=== PATIENT | female | born 1945 | race Caucasian/White ===

== ENCOUNTER 2020-05-29 10:59 | Inpatient (IN) | payer OTHER, MEDICARE ==
[2020-05-29 12:43] LABS: BASO % 0.5 % (0-2.0); EOS % 2.8 % (0-4.5); HEMATOCRIT 25.9 % (32.4-45.2); HEMOGLOBIN 8.7 GM/dL (10.7-15.3); LYMPH % 7.5 % (8-40); MCH 26.7 pg (25.7-33.7); MCHC 33.4 g/dl (32.0-36.0); MEAN CELL VOLUME 79.8 fl (80-96); MEAN PLT VOLUME 7.2 fl (7.5-11.1); MONO % 10.4 % (3.8-10.2); NEUT % 78.8 % (42.8-82.8); PLATELET COUNT 266 K/MM3 (134-434); RBC 3.25 M/mm3 (3.60-5.2); RDW 17.6 % (11.6-15.6); WHITE BLOOD COUNT 7.5 K/mm3 (4.0-10.0)
[2020-05-29 12:54] LABS: EPI CELLS 28 /uL (0-25.1); HYALINE CASTS 1 /uL (0-3.1); PH,URINE >= 9.0 (5.0-8.0); URINE APPEARANCE CLEAR; URINE BACTERIA 85 /uL (0-1359); URINE BILIRUBIN NEGATIVE (NEGATIVE); URINE COLOR YELLOW; URINE GLUCOSE (UA) TRACE (NEGATIVE); URINE KETONE NEGATIVE (NEGATIVE); URINE LEUK ESTERASE 1+ (NEGATIVE); URINE NITRITE NEGATIVE (NEGATIVE); URINE PROTEIN 4+ (NEGATIVE); URINE RBC 54 /uL (0-23.9); URINE WBC 74 /uL (0-25.8)
[2020-05-29 13:10] LABS: BLOOD UREA NITROGEN 61.9 mg/dL (7-18); CALCIUM 7.5 mg/dL (8.5-10.1)
[2020-05-29 13:11] LABS: ALBUMIN 1.9 g/dl (3.4-5.0)
[2020-05-29 13:14] LABS: CREATININE 4.7 mg/dL (0.55-1.3)
[2020-05-29 13:15] LABS: BILIRUBIN,TOTAL 0.7 mg/dL (0.2-1); TOT PROT 6.3 g/dl (6.4-8.2)
[2020-05-29] MEDS ORDERED: SODIUM CHLORIDE 250 ML IV PRN ×2 (13:59→18:16)
[2020-05-29] MEDS ORDERED: CEFTRIAXONE 1,000 MG in DEXTROSE 5%-WATER - 50 ML IVPB ONE (14:29)
[2020-05-29] MEDS ORDERED: CEFTRIAXONE 1 GM/50 ML BAG ONE (14:42)
[2020-05-29 14:54] LABS: INR 2.27 (0.83-1.09); PROTHROMBIN TIME (PATIENT) 26.8 SEC (9.7-13.0)
[2020-05-29] MEDS ORDERED: oxyCODONE HCL 5 MG TABLET PO PRN ×2 (16:07→18:16)
[2020-05-29] MEDS ORDERED: ONDANSETRON 4 MG/2 ML VIAL IVPUSH PRN ×2 (16:07→18:16)
[2020-05-29] MEDS ORDERED: PROMETHAZINE HCL 25 MG/1 ML VIAL IVPUSH PRN ×2 (16:07→18:16)
[2020-05-29] MEDS ORDERED: LIDOCAINE HCL 1%, 10 MG/ML (20ML VIAL) ONE (16:14)
[2020-05-29] MEDS ORDERED: MIDAZOLAM HCL 2 MG/2 ML SINGLE DOSE VIAL ONE (16:50)
[2020-05-29] MEDS ORDERED: PROPOFOL 20 ML ONE (17:13)
[2020-05-29] MEDS ORDERED: ceFAZolin SODIUM 1 GM VIAL ONE (17:21)
[2020-05-29] MEDS ORDERED: DEXAMETHASONE SOD PHOSPHATE 4 MG/1 ML VIAL ONE (17:21)
[2020-05-29] MEDS ORDERED: FERROUS SO4 325 MG TABLET (FP) PO SCH (22:00)
[2020-05-29] MEDS ORDERED: ROSUVASTATIN CA 10 MG TABLET (FP) PO SCH (22:00)
[2020-05-29] MEDS ORDERED: CARVEDILOL 25 MG TABLET (FP) PO SCH (22:00)
[2020-05-29] MEDS ORDERED: amLODIPine BESYLATE 5 MG TABLET (FP) PO SCH (22:00)
[2020-05-29] MEDS ORDERED: OXYBUTYNIN CHLORIDE 5 MG TABLET PO SCH (22:00)
[2020-05-29] MEDS ORDERED: CALCITRIOL 0.25 MCG CAPSULE (FP) PO SCH (22:00)
[2020-05-29 23:07] VITALS: BMI 20.7
[2020-05-29] MEDS ORDERED: PT OWN MED DRAWER 7, Y5N ONE (23:09)
[2020-05-29] MEDS: CARVEDILOL 25 MG TABLET (FP) PO SCH (23:15)
[2020-05-29] MEDS: FERROUS SO4 325 MG TABLET (FP) PO SCH (23:15)
[2020-05-29] MEDS: amLODIPine BESYLATE 5 MG TABLET (FP) PO SCH (23:15)
[2020-05-29] MEDS: ROSUVASTATIN CA 10 MG TABLET (FP) PO SCH (23:15)
[2020-05-30] MEDS: OXYBUTYNIN CHLORIDE 5 MG TABLET PO SCH ×2 (01:32→22:01)
[2020-05-30] MEDS: CALCITRIOL 0.25 MCG CAPSULE (FP) PO SCH ×2 (01:32→22:01)
[2020-05-30] MEDS: SODIUM BICARBONATE 650 MG TABLET PO SCH ×3 (05:08→22:00)
[2020-05-30] MEDS ORDERED: SODIUM BICARBONATE 650 MG TABLET PO SCH (06:00)
[2020-05-30] MEDS ORDERED: SEVELAMER CARBONATE 800 MG TAB (FP) PO SCH (08:00)
[2020-05-30] MEDS: SEVELAMER CARBONATE 800 MG TAB (FP) PO SCH ×3 (08:43→18:23)
[2020-05-30 08:57] LABS: BASO % 0.1 % (0-2.0); HEMATOCRIT 28.4 % (32.4-45.2); HEMOGLOBIN 9.8 GM/dL (10.7-15.3); LYMPH % 6.4 % (8-40); MCH 27.3 pg (25.7-33.7); MCHC 34.7 g/dl (32.0-36.0); MEAN CELL VOLUME 78.8 fl (80-96); MEAN PLT VOLUME 7.2 fl (7.5-11.1); MONO % 8.7 % (3.8-10.2); NEUT % 84.8 % (42.8-82.8); PLATELET COUNT 260 K/MM3 (134-434); RDW 17.8 % (11.6-15.6); WHITE BLOOD COUNT 7.3 K/mm3 (4.0-10.0)
[2020-05-30] MEDS ORDERED: PANTOPRAZOLE 40 MG TABLET PO SCH (10:00)
[2020-05-30] MEDS ORDERED: ISOSORBIDE MONONITRATE 60 MG TAB.SR.24H (FP) PO SCH (10:00)
[2020-05-30] MEDS ORDERED: LIOTHYRONINE SODIUM 25 MCG TABLET PO SCH (10:00)
[2020-05-30] MEDS ORDERED: METHADONE HCL 10 MG TABLET PO SCH (10:00)
[2020-05-30] MEDS ORDERED: FOLIC ACID 1 MG TABLET (FP) PO SCH (10:00)
[2020-05-30 10:20] LABS: ALBUMIN 1.8 g/dl (3.4-5.0); BILIRUBIN,TOTAL 0.4 mg/dL (0.2-1); BLOOD UREA NITROGEN 37.8 mg/dL (7-18); CALCIUM 8.5 mg/dL (8.5-10.1); CREATININE 3.3 mg/dL (0.55-1.3); MAGNESIUM 2.2 mg/dL (1.8-2.4); PHOSPHOROUS 2.3 mg/dL (2.5-4.9); TOT PROT 6.3 g/dl (6.4-8.2)
[2020-05-30 11:22] LABS: BLOOD UREA NITROGEN 24.9 mg/dL (7-18); CALCIUM 8.2 mg/dL (8.5-10.1)
[2020-05-30] MEDS: PANTOPRAZOLE 40 MG TABLET PO SCH (12:41)
[2020-05-30] MEDS: ISOSORBIDE MONONITRATE 60 MG TAB.SR.24H (FP) PO SCH (12:41)
[2020-05-30] MEDS: FOLIC ACID 1 MG TABLET (FP) PO SCH (12:42)
[2020-05-30] MEDS: CARVEDILOL 25 MG TABLET (FP) PO SCH ×2 (12:44→22:02)
[2020-05-30] MEDS: LIOTHYRONINE SODIUM 25 MCG TABLET PO SCH (13:31)
[2020-05-30] MEDS ORDERED: SODIUM CHLORIDE 250 ML IV PRN (13:32)
[2020-05-30 18:20] LABS: INR 1.62 (0.83-1.09); PROTHROMBIN TIME (PATIENT) 19.7 SEC (9.7-13.0)
[2020-05-30] MEDS ORDERED: PT OWN MED DRAWER 7, Y5N ONE (21:58)
[2020-05-30] MEDS: FERROUS SO4 325 MG TABLET (FP) PO SCH (22:01)
[2020-05-30] MEDS: amLODIPine BESYLATE 5 MG TABLET (FP) PO SCH (22:01)
[2020-05-30] MEDS: ROSUVASTATIN CA 10 MG TABLET (FP) PO SCH (22:02)
[2020-05-31] MEDS: SODIUM BICARBONATE 650 MG TABLET PO SCH ×2 (05:56→13:30)
[2020-05-31 08:28] LABS: BASO % 0.5 % (0-2.0); EOS % 1.7 % (0-4.5); HEMATOCRIT 24.2 % (32.4-45.2); HEMOGLOBIN 8.3 GM/dL (10.7-15.3); LYMPH % 9.6 % (8-40); MCH 27.2 pg (25.7-33.7); MCHC 34.4 g/dl (32.0-36.0); MEAN PLT VOLUME 7.1 fl (7.5-11.1); MONO % 8.2 % (3.8-10.2); PLATELET COUNT 215 K/MM3 (134-434); RBC 3.06 M/mm3 (3.60-5.2); RDW 17.5 % (11.6-15.6); WHITE BLOOD COUNT 10.1 K/mm3 (4.0-10.0)
[2020-05-31 08:34] LABS: INR 1.38 (0.83-1.09); PROTHROMBIN TIME (PATIENT) 16.6 SEC (9.7-13.0)
[2020-05-31] MEDS: SEVELAMER CARBONATE 800 MG TAB (FP) PO SCH ×2 (08:54→12:33)
[2020-05-31] MEDS: LIOTHYRONINE SODIUM 25 MCG TABLET PO SCH (09:18)
[2020-05-31] MEDS: PANTOPRAZOLE 40 MG TABLET PO SCH (09:25)
[2020-05-31] MEDS: FOLIC ACID 1 MG TABLET (FP) PO SCH (09:25)
[2020-05-31] MEDS: CARVEDILOL 25 MG TABLET (FP) PO SCH (09:26)
[2020-05-31] MEDS: ISOSORBIDE MONONITRATE 60 MG TAB.SR.24H (FP) PO SCH (09:26)
[2020-05-31] MEDS ORDERED: CLOPIDOGREL BISULFATE 75 MG TABLET (FP) PO SCH (10:00)
[2020-05-31 10:04] LABS: ALBUMIN 1.7 g/dl (3.4-5.0); BILIRUBIN,TOTAL 0.3 mg/dL (0.2-1); BLOOD UREA NITROGEN 34.8 mg/dL (7-18); CALCIUM 8.9 mg/dL (8.5-10.1); CREATININE 3.2 mg/dL (0.55-1.3); TOT PROT 5.6 g/dl (6.4-8.2)
[2020-05-31 15:46] VITALS: BP 147/70; PULSE 88; TEMP 98.6
[2020-05-31 16:10] LABS: HEP B CORE AB, TOT Negative (Negative)
[2020-05-31] MEDS ORDERED: WARFARIN NA 1 MG TABLET PO SCH (18:00)
== END 2020-05-31 16:00 | disposition home or self-care (01) | DRG 682 ==
LOC: JER 10:59 → JERBED 13:41 → J5S 21:46
PROVIDERS: ADMIT Internal Medicine
PROC: B548ZZA Ultrasonography of Superior Vena Cava, Guidance (ICD-10-PCS; 2020-05-29)
PROC: 5A1D70Z Performance of Urinary Filtration, Intermittent, Less than 6 Hours Per Day (ICD-10-PCS; 2020-05-29)
PROC: 02HV33Z Insertion of Infusion Device into Superior Vena Cava, Percutaneous Approach (ICD-10-PCS; principal; 2020-05-29 17:00)
DX: I12.0 Hypertensive chronic kidney disease with stage 5 chronic kidney disease or end stage renal disease (principal); N18.6 End stage renal disease; D68.61 Antiphospholipid syndrome; J98.11 Atelectasis; M32.9 Systemic lupus erythematosus, unspecified; I70.1 Atherosclerosis of renal artery; D63.1 Anemia in chronic kidney disease; E78.5 Hyperlipidemia, unspecified; E03.9 Hypothyroidism, unspecified; D50.9 Iron deficiency anemia, unspecified; E87.6 Hypokalemia; I25.10 Atherosclerotic heart disease of native coronary artery without angina pectoris; Z98.61 Coronary angioplasty status; Z86.73 Personal history of transient ischemic attack (TIA), and cerebral infarction without residual deficits; Z79.01 Long term (current) use of anticoagulants
CPT/HCPCS: 36415; 71045-TC-FY; 76000-TC-FY; 80048; 80053; 80061; 81003; 82306; 82728; 83036; 83540; 83550; 83721; 83735; 83970; 84100; 84443; 85025; 85610; 86704; 86706; 86707; 86708; 86709; 86803; 87086; 87186; 87340; 93005; 93010; 94760; 99285-25; C9803; J1644; U0003; U0005